=== PATIENT | male | born 1985 | race Caucasian/White ===

== ENCOUNTER → 2019-11-10 | Outpatient (CLI) | payer OTHER ==
[2017-03-17 11:18] VITALS: BP 139/90
[~2019-11-10] MED LIST: AMOX1TAB61 PO; CYCL10TA2 PO; DOCU100T11 PO; FENO145T3 PO; GADOTERATE 7.5 MMOL/15ML VIAL. IVP ONE; GLIM4TAB8 PO; HYDR-3135 PO; INSU100I13 SQ; LEVO75TA5 PO; METF10007 PO; OXYC1TAB19 PO; QUIN20TA17 PO; SITA100T PO; TERB250T84 PO
[2019-11-10 13:34] LABS: CALCIUM 8.8 mg/dL (8.5-10.1); CREATININE 0.9 mg/dL (0.7-1.3); GFR 95.5; POTASSIUM 3.9 mmol/L (3.5-5.1)
--- NOTE | 2019-11-10 15:36 | RAD ---
Examination: MRI of the left forefoot without and with IV contrast HISTORY: History of great toe ulcer for 3 months COMPARISON: None available TECHNIQUE: Multiplanar, multisequence MR imaging of the right forefoot were performed without and with IV contrast. IV contrast used was 29 mL of dotarem FINDINGS: The alignment of the metatarsophalangeal joints, interphalangeal joints grossly appears unremarkable. Small ulcer identified in the medial plantar of the great toe. No evidence of cortical disruption identified to suggest osteomyelitis. The Lisfranc ligament appears intact. There is low T1 signal with the slightly high T2 signal identified in the base of the proximal phalanx of the fifth toe could be a nondisplaced fracture. Mild increased T2 signal identified in the soft tissue of the foot could be edema or soft tissue infection. IMPRESSION: 1. Small ulcer identified in the plantar aspect of the great toe without evidence of osteomyelitis. 2. There is low T1 signal with slightly high T2 signal identified in the base of the proximal phalanx of the fifth toe could be a nondisplaced fracture. Correlate for point tenderness. 3. Mild increased T2 signal identified in the soft tissue of the foot could be edema or soft tissue infection. Electronically signed by: Ab Leahy MD (11/10/2019 3:33 PM) [id number]
== END | disposition home or self-care (01) ==
LOC: MRI 13:00
PROVIDERS: ATTEND Preventive Medicine Undersea and Hyperbaric Medicine
DX: S91.102A Unspecified open wound of left great toe without damage to nail, initial encounter (principal); L97.529 Non-pressure chronic ulcer of other part of left foot with unspecified severity; R22.42 Localized swelling, mass and lump, left lower limb; X58.XXXA Exposure to other specified factors, initial encounter; Y93.89 Activity, other specified; Y92.89 Other specified places as the place of occurrence of the external cause; Y99.8 Other external cause status
CPT/HCPCS: 36415; 73720; 80048; A9575

== ENCOUNTER 2020-02-25 18:17 | Emergency (ER) | payer OTHER ==
[~2020-02-25] VITALS: Ht 188 cm; Wt 145.0 kg
[~2020-02-25 18:17] MED LIST changes: -GADOTERATE 7.5 MMOL/15ML VIAL. IVP ONE
[2020-02-25 19:02] VITALS: BP 156/96
[2020-02-25 21:07] LABS: INFLUENZA A PATIENT NEGATIVE (NEGATIVE); INFLUENZA B PATIENT NEGATIVE (NEGATIVE)
[2020-02-25] MEDS ORDERED: METH4TAB2 PO (21:51)
--- NOTE | 2020-02-25 21:51 | ED.ADGEN ---
Past Medical History Past Medical History: Diabetes-Type II, High Cholesterol, Hypertension, Other Additional Past Medical Histor: OBESITY Past Surgical History: No Surgical History Smoking Status: Current Every Day Smoker Alcohol Use: None Drug Use: None General Adult EDM: Chief Complaint: SORE THROAT HPI: HPI: Patient is a 34 year old male who presents the emergency department with complaints of a sore throat for the last week. Patient reports that he has been around his nephew who recently tested positive for strep and tonsillitis. He denies any cough, fever, headache, ear pain, body aches, fatigue, nausea, vomiting, diarrhea, abdominal pain. Patient denies any difficulty swallowing, stridor, muffled voice. He denies any known exposure to COVID-19. He currently rates his pain 8 out of 10 on the pain scale, he denies any alleviating factors the pain is worse with swallowing. Review of Systems: Review of Systems: Complete ROS is negative unless otherwise noted in HPI. Allergies: Allergies: Allergies Coded Allergies Type Severity Reaction Last Updated Verified No Known Drug Allergies 03/15/17 No Physical Exam: PE: See Above Constitutional: Well developed, well nourished, no acute distress, non-toxic appearance, obese. [] HENT: Normocephalic, atraumatic, bilateral external ears normal, nose normal, posterior pharynx normal, moist mucous membranes. [] Eyes: PERRLA, EOMI, conjunctiva normal, no discharge. [] Neck: Normal range of motion, supple, nontender, no stridor. [] Cardiovascular:Heart rate regular rhythm Lungs & Thorax: Respirations even and unlabored, no retractions, no respiratory distress, lungs CTA Skin: Warm, dry, no erythema, no rash. [] Extremities: No cyanosis, ROM intact, no edema. [] Neurologic: Alert and oriented X 3, no focal deficits noted. [] Psychologic: Affect normal, judgement normal, mood normal. [] Current Patient Data: Labs: Laboratory Tests Test 02/25/20 20:41 Influenza Type A Antigen Negative (NEGATIVE) Influenza Type B Antigen Negative (NEGATIVE) Vital Signs: Vital Signs Date Time Temp Pulse Resp B/P (MAP) Pulse Ox O2 Delivery O2 Flow Rate FiO2 02/25/20 19:02 99.1 124 18 156/96 (116) 96 Room Air 99.1 EKG: EKG: [] Heart Score: Risk Factors: Risk Factors: DM, Current or recent (<one month) smoker, HTN, HLP, family history of CAD, obesity. Risk Scores: Score 0 - 3: 2.5% MACE over next 6 weeks - Discharge Home Score 4 - 6: 20.3% MACE over next 6 weeks - Admit for Clinical Observation Score 7 - 10: 72.7% MACE over next 6 weeks - Early Invasive Strategies Radiology/Procedures: Radiology/Procedures: [] Course & Med Decision Making: Course & Med Decision Making Pertinent Labs and Imaging studies reviewed. (See chart for details) [] Dragon Disclaimer: Dragon Disclaimer: This electronic medical record was generated, in whole or in part, using a voice recognition dictation system. Departure Departure Impression: Primary Impression: Pharyngitis, acute Additional Impression: Person under investigation for COVID-19 Disposition: 01 DC HOME SELF CARE/HOMELESS Condition: STABLE Referrals: DENA IYER MD (PCP) Patient Instructions: Viral and Bacterial Pharyngitis, [id number] Additional Instructions: Fill prescription and use as directed. Recommend warm salt water gargles as needed for relief of discomfort. Alternate Tylenol and ibuprofen as needed for fever/pain. Follow the COVID-19 instructions below until your symptoms resolve or you know your test is negative. Return to the ER if symptoms worsen You have been tested for or diagnosed with COVID-19. It is an infection caused by a new type of coronavirus. COVID-19 will cause cold-like or mild flu symptoms in most. It can cause more severe symptoms like problems breathing in some. There is no treatment for COVID-19. The body will clear the infection over time. Self-care will help to ease discomfort. Steps to Take: Self-Care Rest as needed. Healthy habits may help you feel better. Steps include: Choose healthy foods including fruits and vegetables. Drink water throughout the day. Get plenty of sleep each night. If you smoke, try to quit. It may ease breathing. Avoid alcohol. Keep Others Healthy The virus can spread to others. Droplets are released every time you sneeze or cough. The droplets can get into the mouth, nose, or eyes of people near you and lead to infection. To lower the chances of spreading COVID-19 to others: Stay at home until your doctor has said it is safe to leave. If you tested positive this will mean staying isolated until both of the following are true: At least 7 days have passed since the start of illness. You are free of fever for at least 72 hours without the use of medicine. During this time: - Avoid public areas, events, or transportation. Do not return to work or school until your doctor has said it is safe to do so. - Call ahead if you need to go to a medical center. Let them know you may have COVID-19. It will help them guide you where to go. They may also ask you to wear a facemask when you come to the office. - If you call for emergency medical services, let them know you may have COVID- 19. While at home: - Try to avoid close contact with others. Stay about 6 feet away. - If possible, spend most of your time in a separate room from others. - Use a face mask if you will be in close contact with others such as sharing a room or vehicle. - Have someone wipe down common surfaces in the home. Use household mechanical service representative every day on areas like doorknobs, counters, or sinks. - Cough or sneeze into a tissue. Throw the tissue away right after use. If a tissue is not available, cough or sneeze into your elbow. - Wash your hands often. Wash them after sneezing or coughing. Use soap and water and wash for at least 20 seconds. Alcohol based hand drain cleaner plumber can be used if soap and water is not available. - Do not prepare food for others. Avoid sharing personal items like forks, spoons, or toothbrushes. - Avoid close contact with pets while you are sick. There is no evidence of the virus passing to pets. This is a safety step until more is known about this virus. Isolation can be frustrating. Social interaction can help. Keep in touch with f riends and family through phone and tech options. You can still interact with others in your home, just keep a safe distance of about 6 feet. Follow-up: Your doctors office will check in with you to see if there are any changes in your health. You may be asked to keep track of symptoms to share with them. They will also let you know when you are clear to be in public again. Problems to Look Out For: Contact your doctor if your recovery is not going as you expect. Get emergency care if you have problems such as: - Trouble breathing - Nonstop chest pain or pressure - Changes in awareness, confusion, or problems waking - Lips or face have bluish color - Worsening of symptoms If you think you have an emergency, call for emergency medical services right away. As taken from [facility] . Scripts Methylprednisolone (MEDROL) 4 Mg Tab.ds.pk 1 PKG PO UD for 6 Days, #1 PKG 0 Refills Prov: CARMEN REDD BILINGUAL HR GENERALIST 02/25/20 Problem Qualifiers Primary Impression: Pharyngitis, acute Pharyngitis/tonsillitis etiology: unspecified etiology Qualified Codes: J02.9 - Acute pharyngitis, unspecified CARMEN REDD BILINGUAL HR GENERALIST Feb 25, 2020 21:51
== END 2020-02-25 22:50 | disposition home or self-care (01) ==
LOC: ER 18:17
DX: J02.9 Acute pharyngitis, unspecified (principal); Z20.818 Contact with and (suspected) exposure to other bacterial communicable diseases; E11.9 Type 2 diabetes mellitus without complications; E78.00 Pure hypercholesterolemia, unspecified; I10 Essential (primary) hypertension; F17.200 Nicotine dependence, unspecified, uncomplicated; E66.9 Obesity, unspecified; Z68.41 Body mass index [BMI] 40.0-44.9, adult
CPT/HCPCS: 87070; 87804; 87880; 99283; U0003; C9803-CS

== ENCOUNTER 2020-10-25 15:30 | Emergency (ER) | payer OTHER ==
[~2020-10-25] VITALS: Ht 188 cm; Wt 140.0 kg
[~2020-10-25 15:30] MED LIST changes: +METH4TAB2 PO
[2020-10-25 16:16] VITALS: BP 166/106
--- NOTE | 2020-10-25 16:24 | PHYS DOC ---
Past Medical History Past Medical History: Diabetes-Type II, High Cholesterol, Hypertension, Other Additional Past Medical Histor: OBESITY Past Surgical History: No Surgical History Smoking Status: Current Every Day Smoker Alcohol Use: None Drug Use: None General Adult EDM: Chief Complaint: ABSCESS HPI: HPI: Patient is a 35 year old male patient presents with patient to right groin. States he has had this in the 70s, has been getting little bit with more tenderness. States no recent fevers. He has had abscess in the past and reports possible Metamucil. States he is history of diabetes, his blood sugars been running 200s. States he is not taking medication for this. Did not know how this started. Denies any bleeding, discharge from lesion. Review of Systems: Review of Systems: Constitutional: Denies fever or chills. [] Respiratory: Denies cough or shortness of breath. [] Musculoskeletal: Denies back pain or joint pain. [] Integument: Denies rash. [] Reports lesion to his right groin/right inner leg. Denies additional lesions or rash. Endocrine: Denies polyuria or polydipsia. [] Lymphatic: Denies swollen glands. [] Psychiatric: Denies depression or anxiety. [] Heart Score: C/O Chest Pain: N/A Risk Factors: Risk Factors: DM, Current or recent (<one month) smoker, HTN, HLP, family history of CAD, obesity. Risk Scores: Score 0 - 3: 2.5% MACE over next 6 weeks - Discharge Home Score 4 - 6: 20.3% MACE over next 6 weeks - Admit for Clinical Observation Score 7 - 10: 72.7% MACE over next 6 weeks - Early Invasive Strategies Allergies: Allergies: Allergies Coded Allergies Type Severity Reaction Last Updated Verified No Known Drug Allergies 03/15/17 No Physical Exam: PE: Constitutional: Well developed, well nourished, no acute distress, non-toxic appearance. [] Appears uncomfortable HENT: Normocephalic, atraumatic, , oropharynx moist, no oral exudates, nose normal. [] Neck: Normal range of motion, no tenderness, supple, no stridor. [] Cardiovascular:Heart rate regular rhythm, no murmur [] tachycardic. Lungs & Thorax: Bilateral breath sounds clear to auscultation [] Abdomen: Bowel sounds normal, soft, no tenderness, no masses, no pulsatile masses. [] Skin: Warm, dry, . [] Approximate 5 cm diameter, erythematous base abscess, with underlying swelling and firmness 9cm x 6 cm area under primary abscess, raised fluctuant abscess to right inner thigh. Tenderness overlying. No surrounding erythema, no streaking. Nonpulsatile. Back: No tenderness, no CVA tenderness. [] Extremities: No tenderness, no cyanosis, no clubbing, ROM intact, no edema. [] Neurologic: Alert and oriented X 3, normal motor function, normal sensory function, no focal deficits noted. [] Psychologic: Affect normal, judgement normal, mood normal. [] Patient anxious EKG: EKG: [] Radiology/Procedures: Radiology/Procedures: [] Course & Med Decision Making: Course & Med Decision Making Pertinent Labs and Imaging studies reviewed. (See chart for details) []Abscess localized to groin, I&D with noted improvement in discomfort. Will pack wound to keep it draining, will follow up with PCP next week and administer antibiotics. Patient agreeable with plan without further questions or concerns. Dragon Disclaimer: Dragon Disclaimer: This electronic medical record was generated, in whole or in part, using a voice recognition dictation system. Incision and Drainage Indication: abscess Procedure: The patient was positioned appropriately. Local anesthesia was administered using 2 mL 1% lidocaine without epinephrine]. An incision was then made over the apex of the lesion and [large amount of purulent, brown and white, malodorous liquid with intermixed blood was expressed. The drainage cavity was irrigated and packed with half-inch packing. The patients tetanus status updated as needed. The patient tolerated the procedure well. Complications: none. Departure Departure Impression: Primary Impression: Abscess Disposition: 01 HOME / SELF CARE / HOMELESS Condition: GOOD Referrals: DENA IYER MD (PCP) Patient Instructions: Abscess, Abscess, Care After Additional Instructions: As discussed, replace the packing tomorrow and daily for the next 3 days, for total of 3 episodes at home. Keep the gauze dressing over the wound to capture any drainage that comes from it. Take Tylenol or ibuprofen as needed for discomfort. Make sure you keep your blood sugar under control. Follow-up for primary care provider in the next week to ensure the wound is getting better Scripts Sulfamethoxazole/Trimethoprim (BACTRIM DS TABLET) 1 Each Tablet 1 TAB PO BID for 10 Days, #20 TAB 0 Refills Prov: EDSON PASCAL APRN 10/25/20 EDSON PASCAL APRN Oct 25, 2020 16:24
[2020-10-25] MEDS ORDERED: LIDOCAINE 1% PF 2 ML VIAL. INJ ONE (16:30)
[2020-10-25] MEDS ORDERED: SULF1TAB24 PO (16:49)
== END 2020-10-25 16:58 | disposition home or self-care (01) ==
LOC: ER 15:30
DX: L02.211 Cutaneous abscess of abdominal wall (principal); E11.9 Type 2 diabetes mellitus without complications; E78.00 Pure hypercholesterolemia, unspecified; I10 Essential (primary) hypertension; F17.200 Nicotine dependence, unspecified, uncomplicated
CPT/HCPCS: 10060; 99283; J3490